=== PATIENT | female | born 1950 | race Caucasian/White ===

== ENCOUNTER 2017-11-22 15:34 | Observation (INO) ==
[2017-11-22] MEDS ORDERED: MECLIZINE 25 MG TABLET PO STA (16:18)
[2017-11-22] MEDS ORDERED: methylPREDNISolone SOD SUC 125 MG/2 ML VIAL IV STA (16:18)
[2017-11-22] MEDS ORDERED: LORazepam 2 MG/1 ML VIAL IV STA (16:18)
[2017-11-22] MEDS ORDERED: ONDANSETRON 4 MG/2 ML VIAL IV STA (16:18)
[2017-11-22] MEDS ORDERED: SODIUM CHLORIDE 0.9% 1,000 ML IV STA (16:19)
[2017-11-22 16:52] LABS: Basophils # 0.1 10*3/uL (0.0-0.2); Basophils % 0.9 % (0.0-0.8); Eosinophils # 0.1 10*3/uL (0.0-0.87); Eosinophils % 1.2 % (0.00-10.9); Hematocrit 36.8 VOL% (35.7-47.0); Immature Granulocytes % 0.4 %; Immature Granulocytes Absolute 0.03 #; Lymphocytes # 2.6 10*3/uL (1.4-4.0); Mean Corpuscular HGB Conc 32.6 GM/DL (32-36); Mean Corpuscular Hemoglobin 27 PG (27-34); Mean Corpuscular Volume 82.3 FL (87-102); Monocytes # 0.5 10*3/uL (0.11-0.8); Monocytes % 5.3 % (1.7-12.7); Neutrophils # 5.3 10*3/uL (1.4-7.4); Neutrophils % 62.2 % (38.7-73.9); Platelet Count 408 T/CUMM (130-400); Red Blood Count 4.47 MC/CUMM (3.8-5.5); Red Cell Distribution Width 15.2 % (9.3-17.3); White Blood Count 8.6 T/CUMM (4-12)
[2017-11-22] MEDS ORDERED: MECLIZINE 25 MG TABLET ONE (16:52)
[2017-11-22] MEDS ORDERED: ONDANSETRON 4 MG/2 ML VIAL ONE ×2 (16:52→17:02)
[2017-11-22] MEDS ORDERED: LORazepam 2 MG/1 ML VIAL ONE (16:53)
[2017-11-22] MEDS ORDERED: methylPREDNISolone SOD SUC 125 MG/2 ML VIAL ONE (16:53)
[2017-11-22 17:10] LABS: Calcium 9.3 MG/DL (8.5-10.1); Osmolality,Calculated 275.8 MOS/KG (273-304); Potassium 3.6 MMOL/L (3.5-5.1)
[2017-11-22] MEDS ORDERED: ONDANSETRON 4 MG/2 ML VIAL IV PRN (18:22)
[2017-11-22] MEDS ORDERED: ACETAMINOPHEN 325 MG TABLET PO PRN (18:22)
[2017-11-22] MEDS: SODIUM CHLORIDE 0.9% 1,000 ML IV SCH (20:14)
[2017-11-22] MEDS: ENOXAPARIN 40 MG/0.4 ML SYRINGE SUBCUT SCH (20:22)
[2017-11-22] MEDS: MECLIZINE 25 MG TABLET PO SCH (21:57)
[2017-11-23] MEDS: SODIUM CHLORIDE 0.9% 1,000 ML IV SCH ×2 (05:54→16:01)
[2017-11-23] MEDS ORDERED: methylPREDNISolone 4 MG TABLET PO SCH (10:00)
[2017-11-23 10:01] LABS: Osmolality,Calculated 284.1 MOS/KG (273-304)
[2017-11-23] MEDS: MECLIZINE 25 MG TABLET PO SCH ×4 (10:36→21:02)
[2017-11-23 11:25] LABS: Apearance,Urine CLEAR (Clear); Bilirubin,Urine Negative (Negative); Blood, Urine Small mg/dL (Negative); Glucose,Urine (UA) 50 mg/dL (Negative); Hyaline Casts,Urine 1 /LPF (0-3); Ketones,Urine Negative (Negative); Mucus,Urine Occasional /LPF (Occasional); Nitrite,Urine Negative (Negative); Protein,Urine Negative; RBC,Urine 3 /HPF (0-4); Squamous Epithelial Cell,Urine Occasional /HPF (0-10); Urine Color Yellow (Yellow); Urine Specific Gravity 1.012 (1.001-1.035); Urine Urobilinogen < 2.0 EU/DL (0.2-1.0); WBC,Urine 1 /HPF (0-6)
[2017-11-23 11:34] LABS: Barbiturates Screen,Urine Negative (Negative); Benzodiazepines Screen,Urine Negative (Negative); Cannabinoid Screen,Urine Negative (Negative); Opiate Screen,Urine Negative (Negative); Phencyclidine Screen,Urine Negative (Negative)
[2017-11-23] MEDS: methylPREDNISolone 4 MG TABLET PO SCH ×3 (12:55→21:02)
[2017-11-23] MEDS: ENOXAPARIN 40 MG/0.4 ML SYRINGE SUBCUT SCH (17:58)
[2017-11-24] MEDS: SODIUM CHLORIDE 0.9% 1,000 ML IV SCH (02:01)
[2017-11-24] MEDS: methylPREDNISolone 4 MG TABLET PO SCH ×2 (09:36→13:06)
[2017-11-24] MEDS: MECLIZINE 25 MG TABLET PO SCH ×2 (09:36→13:06)
[2017-11-24 13:34] VITALS: BP 130/73
== END 2017-11-24 13:45 | disposition home or self-care (01) ==
LOC: N.EDINP 15:34 → N.ED 15:34 → N.4E 19:03
PROVIDERS: ADMIT Internal Medicine; ATTEND Internal Medicine